=== PATIENT | male | born 1990 | race Two or more races ===

== ENCOUNTER 2024-08-31 19:04 | Emergency (ER) | payer SELFPAY ==
[~2024-08-31] VITALS: Ht 172.7 cm; Wt 87.0 kg
[2024-08-31 20:03] VITALS: TEMP 36.8; O2SAT 97
[2024-08-31] MEDS: IBUPROFEN 800MG TABLET PO ONE (22:40)
[2024-08-31] MEDS: LIDOCAINE 5% PATCH TOP STA (22:40)
[2024-08-31] MEDS ORDERED: IBUP-2030 MT (23:26)
[2024-08-31] MEDS ORDERED: LIDO700A30 TP (23:26)
[2024-08-31 23:50] VITALS: BP 131/80; PULSE 80; RESP 16; O2SAT 99
== END 2024-08-31 23:51 | disposition home or self-care (01) ==
LOC: ER 19:28
DX: M54.42 Lumbago with sciatica, left side (principal); M25.561 Pain in right knee; M25.562 Pain in left knee
CPT/HCPCS: 72100; 73560; 99284